=== PATIENT | female | born 1985 | race African-American/Black ===

== ENCOUNTER 2022-04-01 13:46 | Emergency (ER) | payer BC ==
[~2022-04-01] VITALS: Ht 162.6 cm; Wt 61.0 kg
[2022-04-01 13:50] VITALS: BP 122/75
[2022-04-01] MEDS ORDERED: ONDANSETRON HCL 4MG/2ML INJ IV STA (15:14)
[2022-04-01] MEDS ORDERED: SODIUM CHLORIDE 0.9% 1,000 ML IV ONE (15:15)
[2022-04-01 15:52] LABS: HEMATOCRIT. 41.8 % (36.0-48.0); MEAN CORPUSCULAR HEMOGLOBIN 29.4 pg (28.0-32.0); MEAN CORPUSCULAR VOLUME 87.8 fL (81.0-99.0); MEAN PLATELET VOLUME 7.5 fl (7.4-10.4); PLATELET 343 x1000/uL (130-400); RED BLOOD CELL COUNT 4.76 mill/uL (4.2-5.4); RED CELL DISTRIBUTION WIDTH 13.1 % (11.6-14.6)
[2022-04-01 16:00] LABS: CHLORIDE 105 mEq/L (98-107)
[2022-04-01 16:16] LABS: HCG SCREEN NEGATIVE
[2022-04-01 16:31] LABS: CLARITY URINE TURBID (CLEAR); COLOR URINE DARK YELLOW (YELLOW); KETONES URINE 4+ (NEGATIVE); LEUKOCYTE ESTERASE URINE TRACE (NEGATIVE); NITRITE URINE NEGATIVE (NEGATIVE); OCCULT BLOOD URINE 1+ (NEGATIVE); PROTEIN URINE 1+ (NEGATIVE)
[2022-04-01] MEDS ORDERED: ONDA4TAB11 PO (17:46)
[2022-04-01] MEDS ORDERED: IBUP-2029 MT (17:46)
[2022-04-01 18:37] LABS: PLATELET ESTIMATE NORMAL
== END 2022-04-01 18:27 | disposition home or self-care (01) ==
LOC: ER 14:31
DX: R10.2 Pelvic and perineal pain (principal); E86.0 Dehydration; R11.10 Vomiting, unspecified; Z98.890 Other specified postprocedural states
CPT/HCPCS: 36415; 76830; 76856; 80053; 81003; 81025; 83690; 84703; 85025; 96361; 96374; 99284; J2405; J7030; Z7610